=== PATIENT | female | born 1990 | race Caucasian/White ===

== ENCOUNTER 2016-10-28 05:17 | Inpatient (IN) | payer OTHER ==
[~2016-10-28] VITALS: Ht 165.1 cm; Wt 75.8 kg
[~2016-10-28 05:17] MED LIST: BCPILLS PO
[2016-10-28] MEDS ORDERED: PRENTAB26 PO (05:44)
[2016-10-28 05:45] VITALS: Ht 165.1 cm; Wt 75.8 kg
[2016-10-28] MEDS ORDERED: LACTATED RINGER'S 1000ML 1,000 ML IV PRN (05:55)
[2016-10-28 06:41] LABS: HEMATOCRIT 37.1 % (37-47); MEAN CELL VOLUME 89.2 fL (80-100); MEAN CORPUSCULAR HEMOGLOBIN 29.6 pg (25-34); MEAN CORPUSCULAR HGB CONC 33.2 g/dl (32-36); MEAN PLATELET VOLUME 9.7 fL (7.4-10.4); PLATELET COUNT 224 K/uL (130-400); RED BLOOD COUNT 4.16 M/uL (4.2-5.4); WHITE BLOOD COUNT 11.09 K/uL (4.8-10.8)
[2016-10-28 07:14] LABS: ALT/SGPT 18 U/L (12-78); AST/SGOT 17 U/L (15-37); BLOOD UREA NITROGEN 10 mg/dl (7-18); CALCIUM 8.6 mg/dl (8.5-10.1); CARBON DIOXIDE 24 mmol/L (21-32); CHLORIDE 108 mmol/L (98-107); CREATININE 0.76 mg/dl (0.60-1.20); GLUCOSE 80 mg/dl (70-99); POTASSIUM 3.9 mmol/L (3.5-5.1); SODIUM 140 mmol/L (136-145)
[2016-10-28 07:16] LABS: ALB/GLOB RATIO 0.7 (0.9-2); ALKALINE PHOSPHATASE 175 U/L (45-117)
[2016-10-28] MEDS ORDERED: FENTANYL CITRATE INJ 50 MCG/1 ML 2 ML VIAL ONE ×2 (07:28→21:51)
[2016-10-28] MEDS ORDERED: FENTANYL 2MCG/ML ROPIV 1.25MG/ML 100ML BAG EPI ONE (07:28)
[2016-10-28] MEDS ORDERED: BUPIVACAINE 0.25% 30 ML VIAL ONE (07:28)
[2016-10-28] MEDS ORDERED: EpHEDrine SULFATE INJ 50 MG/ML AMP ONE (07:28)
[2016-10-28] MEDS: LACTATED RINGER'S 1000ML 1,000 ML IV SCH ×3 (08:22→18:49)
[2016-10-28] MEDS ORDERED: LACTATED RINGER'S 1000ML 500 ML IV PRN ×3 (08:34→23:14)
[2016-10-28] MEDS ORDERED: NALOXONE HCL INJ 1 MG in SODIUM CHLORIDE 0.9% 1000ML 1,000 ML IV PRN ×5 (08:34→23:14)
[2016-10-28] MEDS ORDERED: DiphenhydrAMINE HCL 50 MG/ML VIAL IV PRN ×2 (08:45→23:15)
[2016-10-28] MEDS ORDERED: EpHEDrine SULFATE INJ 50 MG/ML AMP IV PRN ×2 (08:45→23:15)
[2016-10-28] MEDS ORDERED: NALBUPHINE HCL INJ 10 MG/ML AMP IV PRN ×2 (08:45→23:15)
[2016-10-28] MEDS ORDERED: NALOXONE HCL INJ 0.4 MG/1 ML VIAL/CARP IV PRN (08:45)
[2016-10-28] MEDS ORDERED: ONDANSETRON INJ 2 MG/ML 2 ML VIAL IV PRN ×3 (08:45→23:15)
[2016-10-28] MEDS ORDERED: PROMETHAZINE HCL INJ 25 MG in SODIUM CHLORIDE 0.9% 50ML 50 ML IV PRN (08:45)
[2016-10-28] MEDS ORDERED: METOCLOPRAMIDE HCL INJ 20 MG in SODIUM CHLORIDE 0.9% 50ML 50 ML IV PRN (08:45)
[2016-10-28] MEDS: FENTANYL 2MCG/ML ROPIV 1.25MG/ML 100ML BAG EPI PRN ×2 (14:14→19:50)
[2016-10-28] MEDS ORDERED: OXYTOCIN 30 UNITS/500ML NSS IV PRN (14:15)
[2016-10-28] MEDS ORDERED: LACTATED RINGER'S 1000ML 1,000 ML IV SCH ×2 (20:55→22:55)
--- NOTE | 2016-10-28 20:59 | Progress Note ---
Progress Note Date of Service Oct 28, 2016. Progress Note H&P in QS. Patient has reached 9.5/100/0 without further descent of the baby. intolerance to labor. Discussed with the patient best route for delivery is to proceed with a primary section as baby has failed to descend despite contractions and pushing effort and does not tolerate pushing. FHT's category 2. Patient agreeable. Risks, benefits and alternatives were discussed and informed consent has been signed.
[2016-10-28] MEDS ORDERED: CITRIC ACID/SODIUM CITRATE 15 ML UDC PO ONE (21:00)
[2016-10-28] MEDS ORDERED: CEFAZOLIN IV 2,000 MG in DEXTROSE 5% 50ML 50 ML IV STA (21:00)
[2016-10-28] MEDS ORDERED: PROPOFOL IV EMULSION 10 MG/ML 20 ML VIAL IV ONE (21:56)
[2016-10-28] MEDS ORDERED: ONDANSETRON INJ 2 MG/ML 2 ML VIAL ONE (21:56)
[2016-10-28] MEDS ORDERED: SUCCINYLCHOLINE CHLORIDE 20 MG/ML 10 ML VIAL IV ONE (21:56)
[2016-10-28] MEDS ORDERED: LIDOCAINE/EPINEPHRINE 2% 1:200,000 20 ML SDV ONE (21:57)
[2016-10-28] MEDS ORDERED: MoRPHine SULFATE PF 1 MG/ML 10 ML AMP/VIAL ONE (21:58)
[2016-10-28] MEDS ORDERED: OXYTOCIN INJ 10 UNITS/ML VIAL ONE (22:11)
[2016-10-28] MEDS ORDERED: OXYCODONE/ACETAMINOPHEN 5-325 TAB PO PRN (23:00)
[2016-10-28] MEDS ORDERED: OXYTOCIN INJ 30 UNITS in LACTATED RINGER'S 1000ML 1,000 ML IV SCH (23:00)
[2016-10-28] MEDS ORDERED: LANOLIN OINT EXT PRN ×2 (23:00)
[2016-10-28] MEDS ORDERED: MAGNESIUM HYDROXIDE SUSP 30 ML UDC PO PRN (23:00)
[2016-10-28] MEDS ORDERED: HYDROCORTISONE ACETATE 25 MG SUPP PR PRN (23:00)
[2016-10-28] MEDS ORDERED: ZOLPIDEM TARTRATE 5 MG TAB PO PRN (23:00)
[2016-10-28] MEDS ORDERED: SENNA 8.6 MG TAB PO PRN (23:00)
[2016-10-28] MEDS ORDERED: DIPHTHERIA/TETANUS/PERTUSSIS 0.5 ML SYR/VIAL IM. ONE (23:00)
[2016-10-28] MEDS ORDERED: SUPERCREAM 0.870 % 15GM JAR EXT PRN (23:00)
[2016-10-28] MEDS ORDERED: KETOROLAC TROMETHAMINE 30 MG/ML VIAL IV. PRN ×2 (23:00→23:15)
[2016-10-28] MEDS ORDERED: BENZOCAINE 20% AER SPR 82.5 GM CAN EXT PRN (23:00)
--- NOTE | 2016-10-28 23:02 | [facility] Post Operative Brief Note ---
Immediate Operative Summary Operative Date Oct 28, 2016. Pre-Operative Diagnosis IUP intolerance to labor Post-Operative Diagnosis Same Procedure(s) Performed Primary caesarean section Lower uterine transverse incision Delivery of live female child Surgeon Dr. Romero Per Diem Registered Nurse Surgeon(s) Isaura Joseph RN Estimated Blood Loss 600cc Findings Patient delivered a viable female at 2146 on 10/28/16 via primary section in the vertex position. weighed 7#13oz with APGARs of 8 at 1 minute and 9 at 5 minutes. Cord blood obtained. Intact placenta with 3 VC delivered manually at 2148. Normal uterus and bilateral ovaries and tubes noted. Both patient and baby tolerated the surgery well and was sent to recovery with stable vital signs. Fluids (cc crystalloids) 2000 Specimens Placenta-exam Cord blood Drains Aguilar to gravity Anesthesia General Complication(s) None Disposition L&D
[2016-10-28] MEDS ORDERED: NALOXONE HCL INJ 0.08 MG in SYRINGE 1.8 ML IV PRN (23:14)
[2016-10-28] MEDS ORDERED: SODIUM CHLORIDE 0.9% 1000ML 1,000 ML IV PRN (23:14)
--- NOTE | 2016-10-28 23:14 | Anesthesia Procedure Note ---
Anesthesia Epidural Removal Nt Date & Time Oct 28, 2016 at 23:13 Vital Signs Pain Intensity: 6.0 Notes Mental Status: alert / awake / arousable, participated in evaluation Nausea / Vomiting: adequately controlled Pain: adequately controlled Airway Patency, RR, SpO2: stable & adequate BP & HR: stable & adequate Hydration State: stable & adequate Neuraxial Anesthesia: was administered Anesthetic Complications: no major complications apparent, pt satisfied with anesthetic care Epidural: removed without complications, with tip intact Notes: removed at end of
[2016-10-28] MEDS ORDERED: NALOXONE HCL 0.4 MG/1 ML VIAL/CARP IV PRN (23:15)
[2016-10-28] MEDS ORDERED: MoRPHine SULFATE 2 MG/ML CARP IV PRN (23:15)
[2016-10-28] MEDS ORDERED: MoRPHine SULFATE PF 1 MG/ML 10 ML AMP/VIAL EPI PRN (23:15)
[2016-10-28] MEDS ORDERED: MEPERIDINE HCL 25 MG/ML CARP IV PRN (23:15)
[2016-10-28] MEDS ORDERED: NO NARCOTICS OR SEDATIVES SCH (23:15)
[2016-10-28] MEDS ORDERED: MEPERIDINE HCL 25 MG/ML CARP ONE (23:26)
[2016-10-29] VITALS (8 sets, daily range): BP systolic 103–129; BP diastolic 71–80; PULSE 77–88; TEMP 36.4–37; O2SAT 93–97
--- NOTE | 2016-10-29 02:07 | Anesthesiology Progress Note ---
Anesthesia Post Op Note Date & Time Oct 29, 2016 at 02:06 Vital Signs Pain Intensity: 5.0 Notes Mental Status: alert / awake / arousable, participated in evaluation Pt Amnestic to Procedure: Yes Nausea / Vomiting: adequately controlled Pain: adequately controlled Airway Patency, RR, SpO2: stable & adequate BP & HR: stable & adequate Hydration State: stable & adequate Neuraxial Anesthesia: was administered, sensory block is resolving Anesthetic Complications: no major complications apparent
--- NOTE | 2016-10-29 05:43 | OPERATIVE REPORT ---
DATE OF OPERATION: 10/28/2016 PREOPERATIVE DIAGNOSES: 1. Intrauterine at 41 weeks and 3 days gestation. 2. intolerance to labor. POSTOPERATIVE DIAGNOSES: Same. OPERATIVE PROCEDURE: Primary low transverse section. SURGEON: Dr. Romero. TRAVEL OCCUPATIONAL THERAPIST: Negra Joseph RN. ANESTHESIA: General. ESTIMATED BLOOD LOSS: 600 mL IV FLUIDS: 2000 mL crystalloids. URINE OUTPUT: 100 mL clear yellow urine. SPECIMENS: Placenta to pathology and cord blood. DRAINS: Aguilar to gravity. COMPLICATIONS: None. DISPOSITION: To labor and delivery. OPERATIVE FINDINGS: The patient delivered a viable female at 2146 on 10/28/2016 via primary section in the vertex position. weighed 7 pounds 13 ounces with Apgars of 8 at 1 minute and 9 at 5 minutes. Please see caddie's notes for further baby assessment. Cord blood was then obtained and an intact placenta with a 3-vessel cord was delivered manually at 2148. Normal uterus and bilateral ovaries and fallopian tubes noted. Both patient and the baby tolerated the surgery well and were sent to recovery with stable vital signs. INDICATIONS FOR PROCEDURE: The patient is a 26-year-old 1, para 0, at 41 weeks and 3 days gestation, who was admitted to labor and delivery on the morning of 10/28/2016 in active labor. She was found to be 2 cm, 90% effaced, -2 station. She progressed on her own. She received an epidural for anesthesia. Spontaneous rupture of membranes was noted at 1103 with clear amniotic fluid noted. The baby's heart rate had multiple prolonged decelerations with good recovery back to baseline of 150 along with intermittent, late decelerations. The patient opted to proceed with labor, despite knowing the risks of continued labor. I did offer her a primary section. After each prolonged deceleration, patient continued opt to proceed with labor. She reached 9.5 cm, 100% effaced and 0 station. We opted to proceed with a trial of pushing. Due to the amount of pain she was having and intolerance, the patient opted to proceed with a primary section. Prior to taking her back to the OR, heart tones were category 1 with a baseline of 145 with moderate variability. No decelerations noted. OPERATIVE PROCEDURE IN DETAIL: The patient was taken to the operating room, where her epidural was bolused. She was then prepped and draped in a manner appropriate for the procedure. Anesthesia was found to be not adequate to using her epidural. Therefore, she was placed under general anesthesia. Once anesthesia was found to be adequate, a Pfannenstiel skin incision was made 2 fingerbreadths above the pubic symphysis and was carried down through to a layer of the rectus fascia. The fascia was nicked in the midline and extended bilaterally with curved Baron scissors. The superior aspect of the fascial incision was grasped with Olivia clamps, elevated and the rectus muscles were dissected off with the use of the curved Baron scissors and electrocautery. Likewise, the inferior aspect of the fascial incision was grasped with Olivia clamps, elevated and the rectus muscles were dissected off with the use of the curved Baron scissors and electrocautery. The rectus muscles were in midline. The peritoneum was grasped with hemostats x2 and entered with Metzenbaum scissors. The peritoneal incision was then extended cephalocaudally with gentle traction. The bladder blade was then placed within the abdomen. The vesicouterine peritoneum was identified and a bladder flap was created with the Metzenbaum scissors and digital traction. The bladder flap was then re-incorporated beneath the [place] blade. A transverse incision was then made on the uterus and extended bilaterally with digital traction. The head was then identified and delivered through the incision without difficulty. The baby was then completely delivered, bulb suctioned and cord was clamped x2. The baby was then handed to an awaiting caddie for further evaluation and management. Please see their notes for further baby assessment. Cord blood was then obtained and an intact placenta with 3-vessel cord was delivered at 2148. The uterus was then exteriorized and wrapped in a moist laparotomy sponge. The uterus was then cleared of any trailing membrane and debris with a laparotomy sponge. The uterine incision was then grasped with ring forceps at 4 quadrants. Ten units of oxytocin was injected intrauterine. The uterine incision was then closed with 0 Vicryl suture in continuous locking fashion. A second layer of 0 Vicryl suture was used in an imbricating fashion to ensure hemostasis. Any residual bleeding was suture ligated with 0 Vicryl suture in a [id number] interrupted fashion. Excellent hemostasis was noted at the incision, the bladder flap was reapproximated to the lower uterine segment with 3-0 Vicryl suture in a continuous running fashion. The posterior cul-de-sac was then irrigated with warm saline solution. The uterus was then placed back within its normal anatomic position within the abdomen. Inspection of the uterine incision was again noted to be hemostatic. All instruments were then removed from the abdomen. Seprafilm was placed over the uterine incision along the fundus of the uterus. The peritoneum was then grasped with Swati clamps at 4 quadrants and was closed with 2-0 Vicryl suture in a continuous running fashion. Rectus muscles were reapproximated with 0 Vicryl suture in a [id number] interrupted fashion. Excellent hemostasis was noted. The fascia was then closed with 0 Vicryl suture in a continuous running fashion. Subcutaneous tissue was reapproximated with 2-0 Vicryl suture in a continuous running fashion. Skin was closed with 4-0 Monocryl in a subcuticular fashion. Excellent hemostasis was noted through all tissue layers. All sponge and instrument counts were found to be correct x2. The patient tolerated the surgery well and was sent to recovery with stable vital signs. I attest to the content of the Intraoperative Record and any orders documented therein. Any exceptio ns are noted below.
[2016-10-29 07:45] LABS: BASO % 0.1 %; BASO ABS # 0.02 K/uL (0-0.2); COMPLETE YES; HEMATOCRIT 32.3 % (37-47); IG% 0.3 %; LYMPH % 10.8 %; MEAN CELL VOLUME 89.2 fL (80-100); MEAN CORPUSCULAR HGB CONC 32.5 g/dl (32-36); MEAN PLATELET VOLUME 9.7 fL (7.4-10.4); MONO % 7.9 %; NEUT % 80.9 %; PLATELET COUNT 201 K/uL (130-400); RED BLOOD COUNT 3.62 M/uL (4.2-5.4); WHITE BLOOD COUNT 20.41 K/uL (4.8-10.8)
[2016-10-29] MEDS: OXYCODONE/ACETAMINOPHEN 5-325 TAB PO PRN ×4 (08:28→21:22)
[2016-10-29] MEDS: IBUPROFEN 600 MG TAB PO PRN ×4 (08:28→21:21)
[2016-10-29] MEDS: SIMETHICONE 80 MG CHEW PO SCH ×4 (08:30→19:49)
[2016-10-29] MEDS: FERROUS SULFATE 325 MG TAB PO SCH (08:30)
[2016-10-29] MEDS: PRENATAL VITAMIN TAB PO SCH (08:30)
[2016-10-29] MEDS: DOCUSATE SODIUM 100 MG CAP PO SCH ×2 (08:31→19:49)
--- NOTE | 2016-10-29 09:06 | OB/GYN Progress Note ---
ENVIRONMENTAL FIELD TEAM MEMBER Progress Note Date of Service: Oct 29, 2016. Patient is seen and examined. She feels well, no complaints. Pain is under control with oral meds. Ambulating without dizziness Has not Voided yet Tolerating regular diet with out N&V Flatus + BM neg Bleeding is minimal No fever/ chills/ CP/ SOB/ N&V/ Leg pain Bottle feeding without problems Date Time Temp Pulse Resp B/P Pulse Ox O2 Delivery O2 Flow Rate FiO2 10/29/16 03:00 16 93 10/29/16 02:25 37.0 77 18 129/80 96 Room Air 10/29/16 02:25 96 Room Air 8-Hour Column 10/28/16 10/29/16 10/29/16 16:00 00:00 08:00 Intake Total 633 ml Output Total 200 ml Balance 433 ml 24-Hour Column 10/29/16 08:00 Intake Total 633 ml Output Total 200 ml Balance 433 ml Test 10/28/16 06:22 10/29/16 06:15 White Blood Count 11.09 H 20.41 H Red Blood Count 4.16 L 3.62 L Hemoglobin 12.3 10.5 L Hematocrit 37.1 32.3 L Mean Corpuscular Volume 89.2 89.2 Mean Corpuscular Hemoglobin 29.6 29.0 Mean Corpuscular Hemoglobin Concent 33.2 32.5 RDW Standard Deviation 47.2 H 47.6 H RDW Coefficient of Variation 14.6 H 14.6 H Platelet Count 224 201 Mean Platelet Volume 9.7 9.7 Sodium Level 140 Potassium Level 3.9 Chloride Level 108 H Carbon Dioxide Level 24 Anion Gap 8.0 Blood Urea Nitrogen 10 Creatinine 0.76 Est Creatinine Clear Calc Drug Dose 116.2 Estimated GFR () 127.2 Estimated GFR (Non- 109.8 BUN/Creatinine Ratio 13.0 Random Glucose 80 Calcium Level 8.6 Total Bilirubin 0.2 Direct Bilirubin < 0.1 Aspartate Amino Transferase (AST) 17 Alanine Aminotransferase (ALT) 18 Alkaline Phosphatase 175 H Total Protein 6.5 Albumin 2.7 L Globulin 3.8 Albumin/Globulin Ratio 0.7 L Neutrophils (%) (Auto) 80.9 Lymphocytes (%) (Auto) 10.8 Monocytes (%) (Auto) 7.9 Eosinophils (%) (Auto) 0.0 Basophils (%) (Auto) 0.1 Neutrophils # (Auto) 16.49 H Lymphocytes # (Auto) 2.20 Monocytes # (Auto) 1.62 H Eosinophils # (Auto) 0.01 Basophils # (Auto) 0.02 Immature Granulocyte % (Auto) 0.3 Immature Granulocyte # (Auto) 0.07 H PE: General: Alert, orientedx3, NAD CVS: S1S2 RRR Lungs; CTAB Abd: soft, NT, fundus firm, below Umbilicus Incision: Clean, dry, intact Perineum intact, Lochia rubra minimal Ext; NT, no edema AP: 26 yo s/p C Section, pod# 1 VSS Afebrile doing well Continue routine postop care Encourage ambulation, PO intake All questions were answered
[2016-10-29] MEDS ORDERED: DC INTRASPINAL MORPHINE SCH (16:00)
[2016-10-29] MEDS ORDERED: BISACODYL 5 MG TABEC PO ONE (22:00)
[2016-10-30 07:18] LABS: HEMATOCRIT 31.2 % (37-47)
[2016-10-30] MEDS: OXYCODONE/ACETAMINOPHEN 5-325 TAB PO PRN ×5 (07:21→23:46)
[2016-10-30] MEDS: IBUPROFEN 600 MG TAB PO PRN ×5 (07:21→23:46)
[2016-10-30 07:30] VITALS: BP 129/90; PULSE 87; TEMP 36.9
[2016-10-30] MEDS: SIMETHICONE 80 MG CHEW PO SCH ×4 (08:28→19:40)
[2016-10-30] MEDS: DOCUSATE SODIUM 100 MG CAP PO SCH ×2 (08:28→19:41)
[2016-10-30] MEDS: PRENATAL VITAMIN TAB PO SCH (08:28)
[2016-10-30] MEDS: FERROUS SULFATE 325 MG TAB PO SCH (08:28)
--- NOTE | 2016-10-30 09:17 | OB/GYN Progress Note ---
GUARD SERGEANT Progress Note Date of Service: Oct 30, 2016. Patient is seen and examined. She feels well, no complaints. Pain is under control with oral meds. Ambulating without dizziness Voiding without difficulty Tolerating regular diet with out N&V Flatus + BM NEG Bleeding is minimal No fever/ chills/ CP/ SOB/ N&V/ Leg pain Bottle feeding without problems Date Time Temp Pulse Resp B/P Pulse Ox O2 Delivery O2 Flow Rate FiO2 10/30/16 07:30 36.9 87 20 129/90 Room Air 10/29/16 23:30 Room Air 10/29/16 23:30 36.5 78 18 115/75 Room Air 10/29/16 19:30 36.9 80 18 117/79 Room Air 10/29/16 16:00 36.4 83 18 113/71 Room Air 10/29/16 15:30 Room Air 10/29/16 11:45 37.0 87 25 103/73 97 Room Air 10/29/16 09:50 36.8 88 20 116/80 94 Room Air Last 24 Hours Test 10/30/16 06:30 Hemoglobin 9.8 g/dL Hematocrit 31.2 % PE: General: Alert, orientedx3, NAD CVS: S1S2 RRR Lungs; CTAB Abd: soft, NT, fundus firm, below Umbilicus Incision: Clean, dry, intact Perineum intact, Lochia rubra minimal Ext; NT, no edema AP: 26 yo s/p C Section, pod# 2 VSS Afebrile doing well Continue routine postop care Encourage ambulation, PO intake All questions were answered D/C home tomorrow
[2016-10-30 15:30] VITALS: BP 129/87; PULSE 102; TEMP 36.5
[2016-10-30] MEDS ORDERED: BISACODYL 10 MG SUPP PR PRN (23:00)
[2016-10-30 23:50] VITALS: BP 124/83; PULSE 88; TEMP 36.5; O2SAT 99
[2016-10-31] MEDS: IBUPROFEN 600 MG TAB PO PRN ×2 (05:36→09:54)
[2016-10-31] MEDS: OXYCODONE/ACETAMINOPHEN 5-325 TAB PO PRN ×2 (05:37→09:55)
[2016-10-31 07:01] LABS: BASO % 0.2 %; BASO ABS # 0.02 K/uL (0-0.2); COMPLETE YES; EOS % 2.4 %; IG% 0.5 %; LYMPH % 31.5 %; LYMPH ABS # 3.12 K/uL (1.2-3.4); MEAN CELL VOLUME 90.1 fL (80-100); MEAN CORPUSCULAR HEMOGLOBIN 28.9 pg (25-34); MEAN CORPUSCULAR HGB CONC 32.1 g/dl (32-36); MEAN PLATELET VOLUME 9.3 fL (7.4-10.4); MONO % 6.9 %; NEUT % 58.5 %; PLATELET COUNT 209 K/uL (130-400); RED BLOOD COUNT 3.22 M/uL (4.2-5.4); WHITE BLOOD COUNT 9.89 K/uL (4.8-10.8)
[2016-10-31 07:20] VITALS: BP 133/90; PULSE 82; TEMP 36.7
[2016-10-31] MEDS: FERROUS SULFATE 325 MG TAB PO SCH (08:23)
[2016-10-31] MEDS: DOCUSATE SODIUM 100 MG CAP PO SCH (08:23)
[2016-10-31] MEDS: PRENATAL VITAMIN TAB PO SCH (08:23)
[2016-10-31] MEDS: SIMETHICONE 80 MG CHEW PO SCH (08:23)
[2016-10-31] MEDS ORDERED: OXYC-57 PO (11:46)
[2016-10-31] MEDS ORDERED: MTR600X PO (11:46)
--- NOTE | 2016-10-31 11:47 | Discharge Instructions ---
Discharge Instructions Date of Service Oct 31, 2016. Admission Reason for Admission: Induction Discharge Discharge Diagnosis / Problem: Primary section Discharge Goals Goal(s): Routine recovery after Activity Recommendations Activity Limitations: per Instructions/Follow-up section . Instructions / Follow-Up Instructions / Follow-Up ACTIVITY RECOMMENDATIONS: * Gradual return to full activity over the next 2-3 weeks. * No lifting - nothing heavier than baby over the next 2-3 weeks. * Do not engage in vigorous exercise, sexual activity or sports until cleared by your physician. * Do not drive or operate any motorized equipment until cleared by your physician. * You may shower/bathe daily. BREAST CARE: If you are not breast feeding: * Wear a supportive bra 24 hours a day for one to two weeks. * Avoid stimulating your breasts and nipples as much as possible during the first few weeks after delivery. * When taking a shower, have the warm water hit your back, not breasts. * When your breasts feel full, apply ice packs. Usually three to four times a day helps ease the discomfort. * Take a mild pain medication (Tylenol/Motrin) when you are uncomfortable. If breast feeding: * Use breast milk to lubricate nipples. Lansinoh cream may be used for sore nipples. You do not need to remove cream prior to breast feeding. If using a different brand of cream, check the label for directions regarding removal of cream prior to nursing. * Wear a supportive bra. * If having problems with breasts or breast feeding, call a sediment remediation consultant or your health care provider. OVER THE COUNTER MEDICATION: * For discomfort or pain, you may use Acetaminophen (Tylenol), Ibuprofen (Advil ), or Naproxen (Aleve) following the package directions. * For constipation you may use Colace following the package directions. SPECIAL CARE INSTRUCTIONS: When you are discharged from the hospital, it is important for you to follow the instructions listed below: * During the first week at home, you should be able to care for yourself and your baby. In addition, the usual light household activities are encouraged. * Limit your activities to the way you feel. Do not try to clean the house or move furniture. Be sensible. * If you actively engage in sports and have done so up until the time of your delivery, you may resume these activities as soon as you feel able. This may take up to one month or even longer. Use good judgment. * Continue to take your vitamins for at least six weeks after the of your baby. * Your diet need not be limited unless you were on a special diet before your delivery. Breast-feeding mothers need around 2500 calories per day and at least 64-80 ounces of fluid per day (8 to 10 glasses). * You should eat foods from the four major food groups. Crash diets or fad diets are to be avoided. Eating lean meats, fresh fruits and vegetables, low-fat dairy products, high fiber foods and a regular exercise program, will help you get back to your pre- weight without putting your health at risk. * Constipation is sometimes a problem after delivery. Take a mild laxative as needed. If breast feeding, Milk of Magnesia is acceptable to use. You may use a suppository or Fleets enema if no episiotomy. * A daily shower or tub bath is suggested. Be sure to thoroughly and gently dry the perineum. * A bloody vaginal discharge will usually continue until around four weeks post . A small amount of bleeding may continue for as long as six weeks. Vaginal discharge changes from the bright red bleeding after delivery to pink then brownish and finally yellowish-pink before becoming white and disappearing. * Bleeding may increase with activity. Your first period may come in 4-8 weeks. If you are breast feeding, your period may be delayed even longer. * [place] (sex) can begin whenever both you and your partner feel comfortable and do not have any form of genital infection. It is recommended that you wait at least six weeks for internal and external healing to occur. If you have questions, please talk to your health care practitioner. A condom should be used to prevent infection and . * Foreplay, gentle intercourse and lubrication is very important the first several times to prevent pain. A water-based lubricant such as K-Y jelly or Astroglide may be used. * Tampons and/or Douching should be avoided until after six weeks check-up. * If you have RH negative blood and your baby is RH positive, you will receive RHOGAM by injection prior to discharge. The nurse will give you a card to keep with you that has the date and place that you received RHOGAM after delivery. * During your care, you had a Rubella screen done to check for the presence of rubella antibodies in your blood. If your test was negative, you will receive a Rubella vaccine prior to discharge. This vaccine may cause a fever, soreness at the injection site and flu-like symptoms. If these symptoms persist, notify your health care practitioner. is not advised for three months after a Rubella vaccine. * Verbalizes understanding of car seat law as reviewed with patient nursing. * Car Seat hand-out given and reviewed with patient by nursing. * Shaken baby information reviewed with patient by nursing. Call you doctor if: * Heavy bleeding (saturating several pads an hour) or passing clots the size of your fist. * A fever >101 degrees F (38.3 degrees C) on two occasions four hours apart and /or chills. * Unusual pain in the pelvic or vaginal areas. Pain should improve each day . * Call the doctor for any increased redness, drainage or swelling around the incision and any pain unrelieved by prescribed pain medication. * Any signs or symptoms of phlebitis (possible blood clots forming in the veins ): leg pain, warm, red or swollen area on leg. * "Baby Blues" lasting longer than two weeks. If you have any questions or concerns, call your health care practitioner at . FOLLOW-UP VISIT: * Incision check (staple removal) in 1 week. Please call doctor's office at to set up appointment. * Please call the office at to schedule a 6 week examination. It is important you keep this appointment. * It is important for you to make arrangements for either yearly or twice yearly check-ups thereafter. Current Hospital Diet Patient's current hospital diet: Regular OB Diet Discharge Diet Recommended Diet: Regular OB Diet Procedures Procedures Performed: Primary caesarean section Lower uterine transverse incision Delivery of live female child Pending Studies Studies pending at discharge: no Medical Emergencies . Who to Call and When: Medical Emergencies: If at any time you feel your situation is an emergency, please call [phone] immediately. . Non-Emergent Contact Non-Emergency issues call your: District Captain . . "Provider Documentation" section prepared by Clay Romero. . VTE Core Measure Inpt VTE Proph given/why not?: Treatment not indicated
--- NOTE | 2016-10-31 11:49 | OB/GYN Progress Note ---
REGIONAL PRODUCTION MANAGER Progress Note Date of Service Oct 31, 2016. Subjective conversation w/ patient, physical exam Ambulation: ambulating normally Voiding: no voiding problems Passing Gas: Yes Diet Tolerance: Regular Diet Lochia: Small Feeding Type: Bottle Feeding Pain: 2/10 Notes: Doing well, no concerns. Pain well controlled. Would like to go home today. Objective Vital Signs Date Time Temp Pulse Resp B/P Pulse Ox O2 Delivery O2 Flow Rate FiO2 10/31/16 07:45 Room Air 10/31/16 07:20 36.7 82 133/90 Room Air 10/30/16 23:50 36.5 88 18 124/83 99 Room Air 10/30/16 23:50 99 Room Air 10/30/16 15:30 36.5 102 20 129/87 Room Air 10/30/16 15:30 Room Air Physical Exam General Appearance: WELL-APPEARING Respiratory/Chest: chest non-tender, lungs clear Cardiovascular: regular rate, rhythm Abdomen: normal bowel sounds, soft Fundus: Firm Incision Description: Clean, Dry & Intact Extremities: normal range of motion, non-tender, no calf tenderness Laboratory Results Last 24 Hours Test 10/31/16 06:20 White Blood Count 9.89 K/uL Red Blood Count 3.22 M/uL Hemoglobin 9.3 g/dL Hematocrit 29.0 % Mean Corpuscular Volume 90.1 fL Mean Corpuscular Hemoglobin 28.9 pg Mean Corpuscular Hemoglobin Concent 32.1 g/dl Platelet Count 209 K/uL Mean Platelet Volume 9.3 fL Neutrophils (%) (Auto) 58.5 % Lymphocytes (%) (Auto) 31.5 % Monocytes (%) (Auto) 6.9 % Eosinophils (%) (Auto) 2.4 % Basophils (%) (Auto) 0.2 % Neutrophils # (Auto) 5.78 K/uL Lymphocytes # (Auto) 3.12 K/uL Monocytes # (Auto) 0.68 K/uL Eosinophils # (Auto) 0.24 K/uL Basophils # (Auto) 0.02 K/uL RDW Standard Deviation 49.0 fL RDW Coefficient of Variation 14.8 % Immature Granulocyte % (Auto) 0.5 % Immature Granulocyte # (Auto) 0.05 K/uL Assessment and Plan Post-Op Day Number: 3 Continue Routine Care: -D/C home today -F/U in 1 week for incision check.
[2016-10-31 12:59] VITALS: BP_DIAS 90; PULSE 82; TEMP 36.7
--- NOTE | 2016-11-12 08:51 | Discharge Summary ---
Discharge Summary Date of Service November 12, 2016. Discharge Summary Admission Date: Oct 28, 2016 at 05:17 Discharge Date: Oct 31, 2016 Discharge Disposition: Home Principal Diagnosis: Post dates at 41.3 weeks, early labor Secondary Diagnoses/Problems: intolerance to labor Procedures: Primary low transverse section Medication Reconciliation New Medications: Ibuprofen (Ibuprofen) 600 Mg Tab 600 MG PO Q4H PRN for Pain, ARORA, Cramping, or Fever, #30 TAB Oxycodone/Acetaminophen 5MG/325MG (Percocet 5MG/325MG) Tab 1 TAB PO Q4H PRN for Pain - Pain Scale 1-5, #30 TAB PAIN Continued Medications: Multivit/Min/Iron/Fol Ac/Pren ( Vitamin) Tab 1 TAB PO DAILY, TAB Admission Information HPI (per Admitting provider): Patient is a 26 y/o at 41.3 weeks who came in to L&D with contractions that began around 2 AM on the day of admission. She was scheduled for an induction of labor that same day for being post dates. Patient was admitted for early labor. Her care was uncomplicated. Physical Exam (per Admitting): General Appearance: WD/WN, no apparent distress Respiratory/Chest: chest non-tender, lungs clear Cardiovascular: regular rate, rhythm Abdomen/GI: normal bowel sounds, soft Neurologic/Psych: alert, oriented x 3 Skin: normal color, warm/dry, no rash Hospital Course Patient was admitted to L&D on the morning of October 28 for early labor. Her labor was augmented with pitocin per protocol as her contractions were inadequate. She received an epidural for anesthesia. AROM was performed. She reached 9.5 cm, 100 effaced, and 0 station. FHT's had multiple late decelerations and was a category III strip therefore the decision was made to proceed with delivery via section. Patient underwent a PLTCS without complications. Both patient and baby tolerated the surgery well and were sent to recovery with stable vital signs. Her postoperative course was uncomplicated. On POD# 1 her norman catheter was removed and her diet and activity were advanced as tolerated. Her incision remained clean, dry and intact. Her hgb remained stable and bleeding was minimal. She was discharged home on POD # 3 with discharge instructions. Total time spent on discharge = 30 mins This includes examination of the patient, discharge planning, medication reconciliation, and communication with other providers. Discharge Instructions ACTIVITY RECOMMENDATIONS: * Gradual return to full activity over the next 2-3 weeks. * No lifting - nothing heavier than baby over the next 2-3 weeks. * Do not engage in vigorous exercise, sexual activity or sports until cleared by your physician. * Do not drive or operate any motorized equipment until cleared by your physician. * You may shower/bathe daily. BREAST CARE: If you are not breast feeding: * Wear a supportive bra 24 hours a day for one to two weeks. * Avoid stimulating your breasts and nipples as much as possible during the first few weeks after delivery. * When taking a shower, have the warm water hit your back, not breasts. * When your breasts feel full, apply ice packs. Usually three to four times a day helps ease the discomfort. * Take a mild pain medication (Tylenol/Motrin) when you are uncomfortable. If breast feeding: * Use breast milk to lubricate nipples. Lansinoh cream may be used for sore nipples. You do not need to remove cream prior to breast feeding. If using a different brand of cream, check the label for directions regarding removal of cream prior to nursing. * Wear a supportive bra. * If having problems with breasts or breast feeding, call a consultant [employer] vice president [employer] (ex ) or your health care provider. OVER THE COUNTER MEDICATION: * For discomfort or pain, you may use Acetaminophen (Tylenol), Ibuprofen (Advil ), or Naproxen (Aleve) following the package directions. * For constipation you may use Colace following the package directions. SPECIAL CARE INSTRUCTIONS: When you are discharged from the hospital, it is important for you to follow the instructions listed below: * During the first week at home, you should be able to care for yourself and your baby. In addition, the usual light household activities are encouraged. * Limit your activities to the way you feel. Do not try to clean the house or move furniture. Be sensible. * If you actively engage in sports and have done so up until the time of your delivery, you may resume these activities as soon as you feel able. This may take up to one month or even longer. Use good judgment. * Continue to take your vitamins for at least six weeks after the of your baby. * Your diet need not be limited unless you were on a special diet before your delivery. Breast-feeding mothers need around 2500 calories per day and at least 64-80 ounces of fluid per day (8 to 10 glasses). * You should eat foods from the four major food groups. Crash diets or fad diets are to be avoided. Eating lean meats, fresh fruits and vegetables, low-fat dairy products, high fiber foods and a regular exercise program, will help you get back to your pre- weight without putting your health at risk. * Constipation is sometimes a problem after delivery. Take a mild laxative as needed. If breast feeding, Milk of Magnesia is acceptable to use. You may use a suppository or Fleets enema if no episiotomy. * A daily shower or tub bath is suggested. Be sure to thoroughly and gently dry the perineum. * A bloody vaginal discharge will usually continue until around four weeks post . A small amount of bleeding may continue for as long as six weeks. Vaginal discharge changes from the bright red bleeding after delivery to pink then brownish and finally yellowish-pink before becoming white and disappearing. * Bleeding may increase with activity. Your first period may come in 4-8 weeks. If you are breast feeding, your period may be delayed even longer. * [place] (sex) can begin whenever both you and your partner feel comfortable and do not have any form of genital infection. It is recommended that you wait at least six weeks for internal and external healing to occur. If you have questions, please talk to your health care practitioner. A condom should be used to prevent infection and . * Foreplay, gentle intercourse and lubrication is very important the first several times to prevent pain. A water-based lubricant such as K-Y jelly or Astroglide may be used. * Tampons and/or Douching should be avoided until after six weeks check-up. * If you have RH negative blood and your baby is RH positive, you will receive RHOGAM by injection prior to discharge. The nurse will give you a card to keep with you that has the date and place that you received RHOGAM after delivery. * During your care, you had a Rubella screen done to check for the presence of rubella antibodies in your blood. If your test was negative, you will receive a Rubella vaccine prior to discharge. This vaccine may cause a fever, soreness at the injection site and flu-like symptoms. If these symptoms persist, notify your health care practitioner. is not advised for three months after a Rubella vaccine. * Verbalizes understanding of car seat law as reviewed with patient nursing. * Car Seat hand-out given and reviewed with patient by nursing. * Shaken baby information reviewed with patient by nursing. Call you doctor if: * Heavy bleeding (saturating several pads an hour) or passing clots the size of your fist. * A fever >101 degrees F (38.3 degrees C) on two occasions four hours apart and /or chills. * Unusual pain in the pelvic or vaginal areas. Pain should improve each day . * Call the doctor for any increased redness, drainage or swelling around the incision and any pain unrelieved by prescribed pain medication. * Any signs or symptoms of phlebitis (possible blood clots forming in the veins ): leg pain, warm, red or swollen area on leg. * "Baby Blues" lasting longer than two weeks. If you have any questions or concerns, call your health care practitioner at . FOLLOW-UP VISIT: * Incision check (staple removal) in 1 week. Please call doctor's office at to set up appointment. * Please call the office at to schedule a 6 week examination. It is important you keep this appointment. * It is important for you to make arrangements for either yearly or twice yearly check-ups thereafter.
== END 2016-10-31 13:00 | disposition home or self-care (01) | DRG 766 ==
LOC: C.LD 05:17 → C.OBG 10-29 02:11
PROVIDERS: ADMIT Obstetrics & Gynecology; ATTEND Obstetrics & Gynecology
PROC: 10D00Z1 Extraction of Products of Conception, Low, Open Approach (ICD-10-PCS; principal; 2016-10-28 20:58)
DX: O48.0 Post-term pregnancy (principal); O76 Abnormality in fetal heart rate and rhythm complicating labor and delivery; Z37.0 Single live birth; Z3A.41 41 weeks gestation of pregnancy

== ENCOUNTER 2018-10-20 07:38 | Inpatient (IN) ==
[2018-10-20] MEDS ORDERED: OXYTOCIN 30 UNITS/500 ML BAG IV PRN (09:24)
[2018-10-20] MEDS ORDERED: LACTATED RINGER'S 1,000 ML IV PRN ×2 (09:24→17:13)
[2018-10-20 09:53] LABS: Hematocrit (blood only) 34.4 % (37-47); Hemoglobin 11.1 g/dL (12.0-16.0); Mean Corpuscular Volume 87.5 fL (80-100); Mean Platelet Volume 9.5 fL (7.4-10.4); Platelet Count 229 K/uL (130-400); RDW Coefficient of Variation 14.7 % (11.5-14.5); RDW Standard Deviation 47.6 fL (36.4-46.3); Red Blood Count 3.93 M/uL (4.2-5.4); White Blood Count 8.78 K/uL (4.8-10.8)
--- NOTE | 2018-10-20 09:53 | Obstetrical Progress Note ---
Date of Service October 20, 2018 Physical Exam Vital Signs (Past 24 Hours): Last Vital Signs Temp 36.7 C 10/20/18 08:14 Pulse 99 H 10/20/18 07:47 Resp 18 10/20/18 08:14 BP 125/85 10/20/18 07:47 Constitutional: WD/WN, vitals as above comfortable Genitourinary: Manual OB Exam: + cervical dilation 1 cm, + cervical effacement 50% and + station high OB Exam Monitor Tracing: + external FHT monitor used, + external uterine monitor used and + category I Aguilar placed transcervically and 35 ml. saline in balloon placed for cervical ripening. Induction of labor at 40.3 weeks for GDM and desire for TOLAC. GBS is negative.
[2018-10-20 09:54] LABS: Mean Corpuscular Hgb Conc 32.3 g/dL (32-36)
--- NOTE | 2018-10-20 17:11 | Obstetrical Progress Note ---
Date of Service October 20, 2018 Physical Exam Vital Signs (Past 24 Hours): Last Vital Signs Temp 36.7 C 10/20/18 15:30 Pulse 83 10/20/18 16:35 Resp 20 10/20/18 16:33 BP 136/71 10/20/18 16:35 Genitourinary: OB Exam Abdomen: + vertex Manual OB Exam: + station high and + amniotic fluid OB Exam Monitor Tracing: + external FHT monitor used, + external uterine monitor used and + category I Will start oxytocin to augment contractions
--- NOTE | 2018-10-20 17:12 | Obstetrical Progress Note ---
Date of Service October 20, 2018 Physical Exam Vital Signs (Past 24 Hours): Last Vital Signs Temp 36.7 C 10/20/18 15:30 Pulse 83 10/20/18 16:35 Resp 20 10/20/18 16:33 EFWBP 136/71 10/20/18 16:35 EFW 7.5 lbs.
[2018-10-20] MEDS: LACTATED RINGER'S 1,000 ML IV SCH (17:56)
[2018-10-20] MEDS: OXYTOCIN 30 UNITS/500 ML BAG IV PRN (17:57)
[2018-10-21] MEDS: LACTATED RINGER'S 1,000 ML IV SCH ×2 (02:03→07:51)
[2018-10-21] MEDS ORDERED: ACETAMINOPHEN 325 MG TAB PO STA (02:08)
[2018-10-21] MEDS ORDERED: ePHEDrine sulfate 50 MG/ML AMP ONE (03:29)
[2018-10-21] MEDS ORDERED: BUPIVACAINE 0.25% 30 ML VIAL ONE (03:29)
[2018-10-21] MEDS ORDERED: fentaNYL citrate 100 MCG/2 ML VIAL ONE (03:29)
[2018-10-21] MEDS ORDERED: fentaNYL 2MCG/ML ROPIV 1.25MG/ML 100 ML BAG EPI ONE (03:30)
--- NOTE | 2018-10-21 03:41 | Anesthesiology Consultation ---
Date of Service October 21, 2018 Assessment & Plan Chart Review Chart Review: Patient NOT seen in Pre Admission Testing and Acceptable Risk for Labor Epidural Consults Requested none ASA ASA2 Proposed Anesthesia Anesthesia Type: Labor Epidural and CSE Risk / Benefits Reviewed With: PT / POA / Parent / Guardian, Accepts Plan and Informed Consent Obtained NPO Date Last Intake of Fluids: 10/21/18 Time Last Intake of Fluids: 03:00 Date Last Intake of Solids: 10/20/18 Time Last Intake of Solids: 23:00 History Height/Weight Height: 5 ft 5 in Weight: 78.018 kg Allergies Allergy/AdvReac Type Severity Reaction Status Date / Time No Known Allergies Allergy Verified 10/20/18 07:50 Medications Home Medications Medication Instructions Recorded Confirmed Last Taken ferrous sulfate [Iron (ferrous 325 mg PO DAILY 10/20/18 10/20/18 10/20/18 sulfate)] 0600 vit-iron fum-folic ac 1 tab PO DAILY 10/20/18 10/20/18 10/20/18 [ Vitamin] 0600 Active Medications Generic Name Dose Route Start Last Admin Trade Name Freq PRN Reason Stop Dose Admin Lactated Ringer's 1,000 mls @ 125 mls/hr 10/20/18 09:30 10/21/18 02:03 Lr IV 10/22/18 09:29 125 mls/hr .Q8H AUGUSTO Administration Oxytocin 30 units in 500 mls @ 10 mls/hr 10/20/18 17:13 10/21/18 01:26 Pitocin IV 10/22/18 17:12 0.6 units/hr .Q24H PRN 10 mls/hr Labor Induction/Augmentation Titration Protocol Past Medical History Medical History Allergic rhinitis Gestational diabetes Past Surgical History Surgical History History of tonsillectomy and adenoidectomy Hx of section Past Anesthesia History No Hx of Anesthesia Complications and No Family Hx of Anesthesia Complications History of PONV No Motion Sickness Screening History of Motion Sickness: No Social History Smoking Status: Never smoker Hx Alcohol Use: No Hx Substance Use: No Exercise / Class Metabolic Activity II 4-5 Yardwork/Stairs/Walk up hill Review of Systems no chest pain or sob Physical Exam Vital Signs Last Vital Signs Temp 36.8 C 10/21/18 02:16 Pulse 99 H 10/21/18 03:40 Resp 18 10/21/18 02:30 BP 128/81 10/21/18 03:21 Pulse Ox 100 10/21/18 03:40 ENMT Mouth: no TMJ abnormality Thyromental Distance: > or= 3.5 Finger Breadths Mallampati Class: II Neck normal visual inspection Respiratory normal respiratory effort Auscultation: lungs clear to auscultation bilaterally Cardiovascular Rate/Rhythm: regular rate and regular rhythm Musculoskeletal Spine: normal cervical ROM Neurologic moves all extremities Psychiatric Orientation: alert and oriented x 3 Testing Laboratory Results 10/20/18 09:43 Blood Type AB Positive 10/20/18 09:43 Antibody Screen NEGATIVE 10/20/18 09:43
[2018-10-21] MEDS ORDERED: fentaNYL 2MCG/ML ROPIV 1.25MG/ML 100 ML BAG EPI PRN ×2 (04:03→10:55)
[2018-10-21] MEDS ORDERED: ePHEDrine sulfate 50 MG/ML AMP IV PRN (04:03)
[2018-10-21] MEDS ORDERED: NALBUPHINE HCL INJ 10 MG/ML AMP IV PRN (04:03)
[2018-10-21] MEDS ORDERED: ONDANSETRON INJ 2 MG/ML 2 ML VIAL IV PRN (04:03)
[2018-10-21] MEDS ORDERED: NALOXONE HCL 0.4 MG/1 ML VIAL/CARP IV PRN (04:03)
[2018-10-21] MEDS ORDERED: DiphenhydrAMINE HCL 50 MG/ML VIAL IV PRN (04:03)
[2018-10-21] MEDS ORDERED: LACTATED RINGER'S 1,000 ML IV PRN (04:03)
[2018-10-21] MEDS ORDERED: NALOXONE HCL 1 MG in SODIUM CHLORIDE 0.9% 1000ML 1,000 ML IV PRN (04:03)
--- NOTE | 2018-10-21 05:02 | Obstetrical Progress Note ---
Date of Service October 21, 2018 Physical Exam Vital Signs (Past 24 Hours): Last Vital Signs Temp 36.8 C 10/21/18 02:16 Pulse 77 10/21/18 04:50 Resp 18 10/21/18 04:40 BP 123/74 10/21/18 04:42 Pulse Ox 100 10/21/18 04:50 Physical Exam: Called to evaluate patient with right sided discomfort above prior skin scar from . Patient visible comfortable in room and with exam. VSS, FHT Cat 1, no bleeding. On exam no rebound or guarding or any signs of uterine rupture. Amniotic fluid is clear. Cervix is 5-6/80/-2/vertex with no bleeding. Will continue to labor and call anesthesia to re-dose epidural.
[2018-10-21] MEDS ORDERED: ACETAMINOPHEN 500 MG TAB ONE (09:20)
[2018-10-21] MEDS ORDERED: ACETAMINOPHEN 500 MG TAB PO STA (09:20)
--- NOTE | 2018-10-21 09:29 | Labor Progress Brief Note ---
Date of Service October 21, 2018 pt doing well TOLAC VE; 6/0 station on last exam Pit; off FHR ; CAT1 Physical Exam Vital Signs (Past 24 Hours): Last Vital Signs Temp 36.7 C 10/21/18 07:10 Pulse 101 H 10/21/18 09:25 Resp 20 10/21/18 08:27 BP 113/74 10/21/18 09:12 Pulse Ox 98 10/21/18 09:25
[2018-10-21] MEDS: OXYTOCIN 30 UNITS/500 ML BAG IV PRN (11:50)
[2018-10-21] MEDS ORDERED: SUPERCREAM 0.870% 15 GM JAR EXT PRN (14:39)
[2018-10-21] MEDS ORDERED: miSOPROStol 200 MCG TAB PR ONE (14:39)
[2018-10-21] MEDS ORDERED: BISACODYL 10 MG SUPP PR PRN (14:39)
[2018-10-21] MEDS ORDERED: HYDROCORTISONE ACETATE 25 MG SUPP PR PRN (14:39)
[2018-10-21] MEDS ORDERED: BENZOCAINE 20% AER SPR 82.5 GM CAN EXT PRN (14:39)
[2018-10-21] MEDS ORDERED: OXYTOCIN 30 UNITS/500 ML BAG IV PRN (14:39)
[2018-10-21] MEDS ORDERED: DIPHTHERIA/TETANUS/PERTUSSIS 0.5 ML SYR/VIAL IM ONE (14:39)
[2018-10-21] MEDS ORDERED: ACETAMINOPHEN 325 MG TAB PO PRN (14:39)
[2018-10-21] MEDS ORDERED: GENTAMICIN CONSULT ACTIVE PRN ×2 (14:44→15:28)
[2018-10-21] MEDS ORDERED: GENTAMICIN SULFATE 320 MG in DEXTROSE 5% 100 ML IV SCH (14:45)
[2018-10-21] MEDS ORDERED: miSOPROStol 200 MCG TAB ONE (14:48)
[2018-10-21] MEDS ORDERED: AMPICILLIN 2,000 MG in SODIUM CHLOR 0.9% AD-VAN 100 ML IV ONE (15:30)
[2018-10-21 15:45] LABS: Base Excess Cord Arterial Bld -8.9 mEq/L (-9-1.8); CO2 Cord Arterial Blood 52 mmHg (39.1-73.5); HCO3 Cord Arterial Blood 20 mmol/L (19.7-28.5)
[2018-10-21 15:50] LABS: Base Excess Cord Venous Blood -7.4 mEq/L (-7.7-1.9); Cord Venous Blood HCO3 19 mmol/L (18.4-26.8); Cord Venous Blood PCO2 43 mmHg (30.4-57.2); Cord Venous Blood PO2 19 mmHg (14.1-43.3); Cord Venous Blood pH 7.27 (7.20-7.44)
[2018-10-21 15:51] LABS: O2 Saturation Cord Venous Bld < 60.0 % (<68)
--- NOTE | 2018-10-21 16:07 | Anesthesia Procedure Note ---
Date of Service October 21, 2018 Anesthesia Post Epidural Note Vital Signs Vital Signs: Temp Pulse Resp BP Pulse Ox 39.1 C H 112 H 20 122/80 87 L 10/21/18 14:20 10/21/18 15:58 10/21/18 14:58 10/21/18 15:58 10/21/18 14:07 Pain Intensity Lower Abdomen: Pain Intensity: 0 Notes Mental Status: alert / awake / arousable and participated in evaluation Nausea / Vomiting: adequately controlled Pain: adequately controlled Airway Patency, RR, SpO2: stable & adequate BP & HR: stable & adequate Hydration State: stable & adequate Neuraxial Anesthesia: was administered and sensory block is resolving Anesthetic Complications: no major complications apparent Epidural: Removed without complications and With tip intact
[2018-10-21 16:11] LABS: Creatinine Clr Calc Pharmacy 89.8 ml/min; Est GFR (African American) 92.3; Est GFR (Non-African American) 79.6
[2018-10-21] MEDS: GENTAMICIN SULFATE IV SCH (16:38)
[2018-10-21] MEDS: DEXTROSE 5% IV SCH (16:38)
[2018-10-21] MEDS: OXYTOCIN 20 UNITS in LACTATED RINGER'S 1,000 ML IV SCH (18:05)
[2018-10-21] MEDS ORDERED: METHYLERGONOVINE MALEATE 0.2 MG/ML AMP ONE (19:24)
[2018-10-21] MEDS: DOCUSATE SODIUM 100 MG CAP PO SCH (20:30)
[2018-10-21] MEDS ORDERED: LIDOCAINE 2% JELLY 5 ML TUBE EXT ONE (20:30)
[2018-10-21] MEDS: IBUPROFEN 600 MG TAB PO PRN (20:54)
[2018-10-21] MEDS ORDERED: METHYLERGONOVINE MALEATE 0.2 MG/ML AMP IM STA (21:20)
--- NOTE | 2018-10-21 21:22 | Delivery Summary ---
DATE OF OPERATION: 10/21/2018 The patient had a fever which was reported by nurse. She received IV fluid bolus. Infant at that point had tachycardia. Plan was to repeat the temperature after the fluid bolus in an hour. She was, however, fully dilated, so patient began to push. She quickly delivered a live female in left occiput anterior presentation. Infant was delivered. Cord was clamped and cut. There was terminal meconium noted at that point. Cord gas and cord blood was obtained. Inspection of the placenta showed some meconium staining of the placenta. Infant's Apgars are 6 and 8. Infant has a fever and peds has been called. Repeated the temperature of mom and she still has a fever. She will be started on antibiotics as well. Inspection of the perineum showed a second-degree midline laceration with bilateral tears. Both have been repaired with Vicryl suture. There was good hemostasis. Estimated blood loss is 600 mL. Mother and baby are in recovery. I attest to the content of the Intraoperative Record and any orders documented therein. Any exception s are noted below.
[2018-10-21] MEDS: AMPICILLIN 1,000 MG in SODIUM CHLOR 0.9% AD-VAN 50 ML IV SCH (21:30)
[2018-10-22] MEDS: OXYTOCIN 20 UNITS in LACTATED RINGER'S 1,000 ML IV SCH (00:07)
[2018-10-22] MEDS: AMPICILLIN 1,000 MG in SODIUM CHLOR 0.9% AD-VAN 50 ML IV SCH ×3 (04:01→18:16)
[2018-10-22 06:59] LABS: Hematocrit (blood only) 32.7 % (37-47); Hemoglobin 10.6 g/dL (12.0-16.0); Mean Corpuscular Hgb Conc 32.4 g/dL (32-36); Mean Corpuscular Volume 87.7 fL (80-100); Mean Platelet Volume 9.7 fL (7.4-10.4); Platelet Count 203 K/uL (130-400); RDW Coefficient of Variation 15.1 % (11.5-14.5); RDW Standard Deviation 48.3 fL (36.4-46.3); Red Blood Count 3.73 M/uL (4.2-5.4); White Blood Count 30.71 K/uL (4.8-10.8)
[2018-10-22 07:21] LABS: Creatinine Clr Calc Pharmacy 129.5 ml/min; Est GFR (African American) 139.9; Est GFR (Non-African American) 120.7
[2018-10-22] MEDS: PRENATAL VITAMIN 1 TAB PO SCH (08:44)
[2018-10-22] MEDS: IBUPROFEN 600 MG TAB PO PRN ×3 (08:44→20:03)
[2018-10-22] MEDS: DOCUSATE SODIUM 100 MG CAP PO SCH ×2 (08:44→20:03)
--- NOTE | 2018-10-22 10:18 | Obstetrical Progress Note ---
Date of Service October 22, 2018 Assessment & Plan (1) normal course: PPD #1 Pt doing well stable H&H- Will remove norman cath chorio- on antibiotics x 24hrs Physical Exam Vital Signs (Past 24 Hours) Last Vital Signs Temp 36.7 C 10/22/18 08:06 Pulse 62 10/22/18 08:06 Resp 18 10/22/18 08:06 BP 104/63 10/22/18 08:06 Pulse Ox 98 10/21/18 16:50
[2018-10-22] MEDS: GENTAMICIN SULFATE IV SCH (16:21)
[2018-10-22] MEDS: DEXTROSE 5% IV SCH (16:21)
[2018-10-22] MEDS ORDERED: BISACODYL 5 MG TABEC PO SCH (20:00)
[2018-10-23] MEDS: AMPICILLIN 1,000 MG in SODIUM CHLOR 0.9% AD-VAN 50 ML IV SCH ×2 (00:01→06:05)
[2018-10-23 05:29] VITALS: TEMP 97.7
[2018-10-23 06:48] LABS: Hematocrit (blood only) 29.7 % (37-47); Hemoglobin 9.4 g/dL (12.0-16.0)
[2018-10-23 07:20] LABS: Creatinine Clr Calc Pharmacy 154.4 ml/min; Est GFR (African American) 148.3; Est GFR (Non-African American) 127.9
[2018-10-23] MEDS: IBUPROFEN 600 MG TAB PO PRN (07:43)
[2018-10-23] MEDS: PRENATAL VITAMIN 1 TAB PO SCH (07:44)
[2018-10-23] MEDS: DOCUSATE SODIUM 100 MG CAP PO SCH (07:44)
--- NOTE | 2018-10-23 08:34 | Obstetrical Progress Note ---
Date of Service October 23, 2018 Physical Exam Vital Signs (Past 24 Hours): Last Vital Signs Temp 36.5 C 10/23/18 04:40 Pulse 61 10/23/18 04:40 Resp 18 10/23/18 04:40 BP 119/85 10/23/18 04:40 Pulse Ox 98 10/22/18 15:25 Constitutional: WD/WN, vitals as above comfortable abdomen soft non-tender no edema neg Homans for d/c home
[2018-10-23 08:58] VITALS: BP 128/96; PULSE 75; O2SAT 99
== END 2018-10-23 15:02 | disposition home or self-care (01) | DRG 806 ==
LOC: 4S1 07:38 → 4S2 10-21 17:02